=== PATIENT | female | born 1990 | race Two or more races ===

== ENCOUNTER 2018-08-12 08:36 | Emergency (ER) | payer SELFPAY ==
[2018-08-12 08:50] VITALS: BP 110/71
[2018-08-12] MEDS ORDERED: IBUPROFEN 800 MG TABLET PO ONE (09:20)
[2018-08-12 10:28] LABS: A TYPE INFLUENZA AG NEGATIVE (NEGATIVE)
[2018-08-12 10:29] LABS: B INFLUENZA AG NEGATIVE (NEGATIVE)
--- NOTE | 2018-08-12 11:09 | ER Document Report ---
HPI - HPI Patient complains to provider of: cold symptoms Time Seen by Provider: 08/12/18 09:04 Onset: Yesterday Onset/Duration: Gradual Quality of pain: Achy Pain Level: 4 Context: Patient presents with flulike symptoms that started yesterday. Patient complains of cough, congestion and chest pain with nausea and sore throat. Patient reports fever as well. Patient is here with her children have similar upper respiratory symptoms. Associated Symptoms: Body/muscle aches, Chest pain, Chills, Nonproductive cough, Fever, Rhinnorhea, Sore throat Exacerbated by: Denies Relieved by: Denies Similar symptoms previously: No Recently seen / treated by doctor: No - ROS ROS below otherwise negative: Yes Systems Reviewed and Negative: Yes All other systems reviewed and negative - CONSTITUTIONAL Constitutional: REPORTS: Fever. DENIES: Chills - EENT EENT: REPORTS: Sore Throat, Congestion - NEURO Neurology: REPORTS: Headache - CARDIOVASCULAR Cardiovascular: REPORTS: Chest pain - RESPIRATORY Respiratory: REPORTS: Coughing - GASTROINTESTINAL Gastrointestinal: DENIES: Nausea, Patient vomiting, Diarrhea - REPRODUCTIVE Reproductive: DENIES: : - MUSCULOSKELETAL Musculoskeletal: DENIES: Back Pain - DERM Skin Color: Normal Skin Problems: None Past Medical History - General Information source: Patient - Social History Smoking Status: Never Smoker Frequency of alcohol use: None Drug Abuse: None Occupation: None Lives with: Family Family History: Reviewed & Not Pertinent Patient has suicidal ideation: No Patient has homicidal ideation: No - Medical History Medical History: Negative Renal/ Medical History: Denies: Hx Peritoneal Dialysis Surgical Hx: Negative Vertical Provider Document - CONSTITUTIONAL Agree With Documented VS: Yes Exam Limitations: No Limitations General Appearance: WD/WN, No Apparent Distress - HEENT HEENT: Atraumatic, Normocephalic, Pharyngeal Tenderness, Pharyngeal Erythema. negative: Pharyngeal Exudate, Tympanic Membrane Red, Tympanic Membrane Bulging - NECK Neck: Normal Inspection, Supple. negative: Lymphadenopathy-Left, Lymphadenopathy-Right - RESPIRATORY Respiratory: Breath Sounds Normal, No Respiratory Distress, Chest Non-Tender - CARDIOVASCULAR Cardiovascular: Regular Rate, Regular Rhythm, No Murmur - GI/ABDOMEN Gastrointestinal: Abdomen Soft, Abdomen Non-Tender, Normal Bowel Sounds - MUSCULOSKELETAL/EXTREMETIES Musculoskeletal/Extremeties: MAEW - NEURO Level of Consciousness: Awake, Alert, Appropriate Motor/Sensory: No Motor Deficit - DERM Integumentary: Warm, Dry, No Rash Course - Re-evaluation Re-evalutation: 08/12/18 11:10 Patient presents with child who did test positive for influenza type A. Patient did have a negative influenza test although suspect that this is a false negative at this time. Offered mother treatment with Tamiflu, after discussing side effects and efficacy mother defers prescription preferred to treat symptomatically at this time. - Vital Signs Vital signs: Temp Pulse Resp BP Pulse Ox 100.6 F H 99 16 110/71 100 08/12/18 08:49 08/12/18 08:49 08/12/18 08:49 08/12/18 08:49 08/12/18 08:49 - Laboratory Laboratory results interpreted by me: 08/12/18 14:47 Labs- Entire Visit 08/12/18 08/12/18 09:35 09:35 Influenza A (Rapid) NEGATIVE Influenza B (Rapid) NEGATIVE Group A Strep Rapid NEGATIVE Discharge - Discharge Clinical Impression: Influenza A Fever Qualifiers: Fever type: unspecified Qualified Code(s): R50.9 - Fever, unspecified Condition: Stable Disposition: HOME, SELF-CARE Instructions: Acetaminophen, Influenza ([facility]) Additional Instructions: Return immediately for any new or worsening symptoms Followup with your primary care provider, call tomorrow to make a followup appointment Prescriptions: Benzonatate [Tessalon Perle 100 mg Capsule] 100 mg PO Q8HP PRN #20 cap PRN Reason: Naproxen [Naprosyn 250 Nmg Tablet] 1 tab PO BID #14 tablet Referrals: MACK NOBLE MD [Primary Care Provider] - Follow up as needed
== END 2018-08-12 11:26 | disposition home or self-care (01) ==
LOC: ER 08:36
DX: J11.1 Influenza due to unidentified influenza virus with other respiratory manifestations (principal); R50.9 Fever, unspecified; R51 Headache; R11.0 Nausea; M79.10 Myalgia, unspecified site
CPT/HCPCS: 87070; 87804; 87880; 99283

== ENCOUNTER 2018-12-18 12:48 | Emergency (ER) | payer MEDICAID ==
--- NOTE | 2018-12-18 13:03 | ER Document Report ---
ED Medical Screen (RME) - General Chief Complaint: Pelvic Pain Stated Complaint: BLOOD IN URINE Time Seen by Provider: 12/18/18 12:58 Primary Care Provider: MACK NOBLE MD [Primary Care Provider] - Follow up as needed Mode of Arrival: Ambulatory Information source: Patient Notes: 28-year-old female presented to ED for vaginal bleeding and pelvic pain since yesterday. Patient states her last menstrual cycle was December 05. She states she had a E sure done about 6 years ago. Patient is alert and oriented respirations regular and unlabored speaking in full sentences. I have greeted and performed a rapid initial assessment of this patient. A comprehensive ED assessment and evaluation of the patient, analysis of test results and completion of medical decision making process will be conducted by an additional ED providers. Dictation of this chart was performed using voice recognition software; therefore, there may be some unintended grammatical errors. TRAVEL OUTSIDE OF THE [place] IN LAST 30 DAYS: No - Related Data Allergies/Adverse Reactions: coffee (Coffea arabica) Allergy (Verified 12/18/18 12:51) Latex, Natural Rubber Allergy (Verified 12/18/18 12:51) mustard Allergy (Verified 12/18/18 12:51) pork derived (porcine) Allergy (Verified 12/18/18 12:51) Past Medical History Renal/ Medical History: Denies: Hx Peritoneal Dialysis Physical Exam - Vital signs Vitals: Temp Pulse Resp BP Pulse Ox 98.6 F 77 18 116/57 L 99 12/18/18 12:53 12/18/18 12:53 12/18/18 12:53 12/18/18 12:53 12/18/18 12:53 Course - Vital Signs Vital signs: Temp Pulse Resp BP Pulse Ox 98.6 F 77 18 116/57 L 99 12/18/18 12:53 12/18/18 12:53 12/18/18 12:53 12/18/18 12:53 12/18/18 12:53 Doctor's Discharge - Discharge Referrals: MACK NOBLE MD [Primary Care Provider] - Follow up as needed
[2018-12-18 13:30] LABS: ABSOLUTE EOSINOPHILS # (AUTO) 0.1 10^3/uL (0.0-0.6); ABSOLUTE MONOCYTES (AUTO) 0.4 10^3/uL (0.1-1.4); ABSOLUTE NEUT (AUTO) 4.7 10^3/uL (1.7-8.2); BASOPHILS % (AUTO) 0.3 % (0-2); HEMATOCRIT 39.8 % (36.0-47.0); HEMOGLOBIN 13.1 g/dL (12.0-15.5); LYMPHOCYTES % (AUTO) 27.8 % (13-45); MEAN CORPUSCULAR VOLUME 85 fl (80-97); MONOCYTES % (AUTO) 5.4 % (3-13); PLATELET COUNT 355 10^3/uL (150-450); RED BLOOD COUNT 4.69 10^6/uL (3.72-5.28); RED CELL DISTRIBUTION WIDTH 13.5 % (11.5-14.0); SEGMENTED NEUTROPHILS % (AUTO) 65.5 % (42-78); TOTAL CELLS COUNTED % (AUTO) 100 %; WHITE BLOOD COUNT 7.1 10^3/uL (4.0-10.5)
[2018-12-18 13:37] LABS: AMORPHOUS SEDIMENT,URINE TRACE /HPF; APPEARANCE,URINE CLOUDY; BILIRUBIN,URINE NEGATIVE (NEGATIVE); COLOR,URINE YELLOW; GLUCOSE, URINE NEGATIVE (NEGATIVE); KETONES,URINE NEGATIVE (NEGATIVE); LEUKOCYTE ESTERASE,URINE NEGATIVE (NEGATIVE); NITRITE,URINE NEGATIVE (NEGATIVE); PROTEIN,URINE 30 mg/dL (NEGATIVE); URINE SPECIFIC GRAVITY 1.021; UROBILINOGEN,URINE NEGATIVE mg/dL (<2.0)
--- NOTE | 2018-12-18 13:42 | RADIOLOGY REPORT (SQ) ---
EXAM DESCRIPTION: U/S NON OB PEL TV W/DOPPLER COMPLETED DATE/TIME: 12/18/2018 1:33 pm REASON FOR STUDY: Pelvic pain vaginal bleeding COMPARISON: None. TECHNIQUE: Dynamic and static grayscale images acquired of the pelvis via transvaginal approach and recorded on PACS. Additional selected color Doppler and spectral images recorded. LIMITATIONS: None. FINDINGS: UTERUS: Contour normal. No mass. ENDOMETRIAL STRIPE: No focal or generalized thickening. No masses. IUD present. CERVIX: No nabothian cysts. RIGHT OVARY AND DOPPLER: Normal size. No worrisome masses. Simple cyst measuring 2.1 cm. Normal art erial vascular flow without evidence for torsion. LEFT OVARY AND DOPPLER: Normal size. No worrisome masses. Normal arterial vascular flow without evide nce for torsion. FREE FLUID: None noted. OTHER: No other significant finding. MEASUREMENTS: UTERUS: 9.9 x 4.4 x 5.1 cm ENDOMETRIAL STRIPE: 8 mm RIGHT OVARY: 3.2 x 2.1 x 2.3 cm LEFT OVARY: 2.5 x 1.6 x 1.6 cm IMPRESSION: IUD present in the endometrial cavity. No ultrasound findings to explain pelvic pain or vaginal bleeding. TECHNICAL DOCUMENTATION: JOB ID: [id number] [employer]- All Rights Reserved Rev-12/11 Reading location - IP/workstation name: [email or web address]
[2018-12-18 13:45] LABS: ALANINE AMINOTRANSFERASE 29 U/L (9-52); ALBUMIN 4.6 g/dL (3.5-5.0); ALKALINE PHOSPHATASE 96 U/L (38-126); ANION GAP 12 (5-19); ASPARTATE AMINO TRANSFERASE 19 U/L (14-36); BILIRUBIN,DIRECT 0.1 mg/dL (0.0-0.4); BILIRUBIN,TOTAL 0.3 mg/dL (0.2-1.3); BLOOD UREA NITROGEN 12 mg/dL (7-20); CARBON DIOXIDE 28 mmol/L (22-30); CHLORIDE 102 mmol/L (98-107); GLUCOSE 101 mg/dL (75-110); POTASSIUM 3.9 mmol/L (3.6-5.0); TOTAL PROTEIN 7.5 g/dL (6.3-8.2)
[2018-12-18 14:35] VITALS: BP 123/76
[2018-12-18] MEDS ORDERED: NITROFURANTOIN MONOHYD/M-CRYST 100 MG CAPSULE PO ONE (14:38)
--- NOTE | 2018-12-18 14:38 | ER Document Report ---
ED GI/ - General Chief Complaint: Pelvic Pain Stated Complaint: BLOOD IN URINE Time Seen by Provider: 12/18/18 12:58 Primary Care Provider: AMCK NOBLE MD [EMERITUS] - Follow up in 3-5 days Mode of Arrival: Ambulatory Information source: Patient Notes: 28-year-old female presents to ED for complaint of what she thought was vaginal bleeding and pelvic pain but she is actually having blood in the urine. She states she had her last menstrual cycle on December 05. She states she had an IUD but she thought it was easier done about 6 years ago. She is alert and oriented respirations regular and speaking in full sentences. Her blood work urine and ultrasound are back. She does have an ovarian cyst on the right side which is where her pain is. Otherwise her ultrasound is negative. Blood work is negative. She does have a UTI with blood in the urine. TRAVEL OUTSIDE OF THE [place] IN LAST 30 DAYS: No - HPI Patient complains to provider of: Pelvic pain, Other - Blood in the urine Onset: Yesterday Timing/Duration: Gradual Quality of pain: Cramping, Sharp Severity at maximum: Moderate Severity in ED: Moderate Pain Level: 3 Location: Pelvis - Right Vaginal bleeding (Compared to normal period): Spotting LMP: December 05 Associated symptoms: Hematuria, Other - Related Data Allergies/Adverse Reactions: coffee (Coffea arabica) Allergy (Verified 12/18/18 12:51) Latex, Natural Rubber Allergy (Verified 12/18/18 12:51) mustard Allergy (Verified 12/18/18 12:51) pork derived (porcine) Allergy (Verified 12/18/18 12:51) Past Medical History - General Information source: Patient - Social History Smoking Status: Never Smoker Family History: Reviewed & Not Pertinent Patient has suicidal ideation: No Patient has homicidal ideation: No Renal/ Medical History: Denies: Hx Peritoneal Dialysis Physical Exam - Vital signs Vitals: Temp Pulse Resp BP Pulse Ox 98.6 F 77 18 116/57 L 99 12/18/18 12:53 12/18/18 12:53 12/18/18 12:53 12/18/18 12:53 12/18/18 12:53 Course - Re-evaluation Re-evalutation: 12/18/18 14:54 Discussed labs and ultrasound with patient and written report of labs and ultrasound given to patient and patient discharged home with a diagnosis of UTI and ovarian cyst. She verbalized understanding and agreement treatment plan. She was discharged home on Macrobid and ibuprofen. - Vital Signs Vital signs: Temp Pulse Resp BP Pulse Ox 98.5 F 68 18 123/76 100 12/18/18 14:34 12/18/18 14:34 12/18/18 14:34 12/18/18 14:34 12/18/18 14:34 - Laboratory Result Diagrams: 12/18/18 13:10 12/18/18 13:10 Laboratory results interpreted by me: 12/18/18 13:07 Urine Protein 30 H Urine Blood LARGE H Urine Ascorbic Acid 40 H - Diagnostic Test Radiology reviewed: Image reviewed, Reports reviewed Discharge - Discharge Clinical Impression: Ovarian cyst, right UTI (urinary tract infection) Qualifiers: Urinary tract infection type: site unspecified Hematuria presence: with hematuria Qualified Code(s): N39.0 - Urinary tract infection, site not specified Condition: Stable Disposition: HOME, SELF-CARE Additional Instructions: Ovarian Cyst Your examination shows the presence of an ovarian cyst. This is a ball of fluid attached to the ovary. Ovarian cysts in women of child-bearing age are usually innocent. However, the cyst may cause pain when it grows or bursts. An innocent ovarian cyst will usually go away by itself. When the cyst becomes painful, you should rest. Pain medication may be required. Some women find a hot water bottle soothing. The pain usually resolves within one or two days. After menopause, an ovarian cyst may mean a tumor, and requires more aggressive evaluation -- usually surgery is recommended to remove or biopsy the cyst. A very large cyst requires evaluation at any age. Most cysts (even the innocent ones) require follow-up examination. Call the doctor or return at any time if the pain increases significantly, if you become faint, or if you experience vaginal bleeding. URINARY TRACT INFECTION: Your evaluation indicates that you have a urinary tract infection. This is due to germs growing in the bladder. This is a common problem. This infection usually responds quickly to antibiotics. Your antibiotic should be taken exactly as prescribed. Drink plenty of fluids -- three to four quarts a day. Occasionally, a bladder anesthetic will be prescribed to help stop the feeling of urgency until the antibiotic has a chance to clear the infection. This may cause your urine to be dark orange. Certain urine infections require a culture. If the doctor obtained a culture, the results will be back in two days. You should call to see if a change in treatment is needed. A repeat urinalysis after you finish treatment is often recommended. The physician will let you know if further testing is required. Call the doctor if you develop fever, chills, flank pain, inability to urinate, or blood in the urine. NITROFURANTOIN (MACRODANTIN, MACROBID): You have received a prescription for nitrofurantoin (Macrodantin). This antibiotic is used for urinary tract infections. Women who are or nursing should notify the physician before taking this medicine. If you have ever had a problem caused by this medication in the past, be sure the physician is aware of it. Common side effects of this medicine include nausea, vomiting, or decreased appetite. Notify your physician if these side effects become severe. Immediately stop this medicine and call the physician if you develop cough, shortness of breath, chest pain, weakness, jaundice (yellow color of the skin and whites of the eyes), or a skin rash. FOLLOW-UP CARE: If you have been referred to a physician for follow-up care, call the physicians office for an appointment as you were instructed or within the next two days. If you experience worsening or a significant change in your symptoms, notify the physician immediately or return to the Emergency Department at any time for re-evaluation. Prescriptions: Ibuprofen [Motrin 600 mg Tablet] 600 mg PO Q8HP PRN #14 tablet PRN Reason: Nitrofurantoin/Nitrofuran Mac [Macrobid 100 mg Capsule] 1 tab PO BID #14 capsule Forms: Return to Work Referrals: MACK NOBLE MD [EMERITUS] - Follow up in 3-5 days
== END 2018-12-18 14:44 | disposition home or self-care (01) ==
LOC: ER 12:48
DX: N83.201 Unspecified ovarian cyst, right side (principal); N39.0 Urinary tract infection, site not specified; R10.2 Pelvic and perineal pain; R31.9 Hematuria, unspecified
CPT/HCPCS: 36415; 76830; 80053; 81001; 84703; 85025; 87086; 93976; 99284